=== PATIENT | female | born 1940 | race Hispanic/Latino ===

== ENCOUNTER 2022-05-14 05:59 | Observation (INO) | payer MEDICARE ==
[2022-05-08 10:42] LABS: BASOPHILS % (AUTO) 1.1 % (0.0-5.0); EOSINOPHILS % (AUTO) 2.5 % (0.0-8.0); HEMATOCRIT 39.1 % (36-48); LYMPHOCYTES % (AUTO) 16.7 % (21.0-51.0); MEAN CORPUSCULAR HEMOGLOBIN 31.2 pg (27.0-33.0); MEAN CORPUSCULAR VOLUME 97.5 fL (79-99); MONOCYTES % (AUTO) 3.8 % (3.0-13.0); NEUTROPHILS % (AUTO) 75.6 % (40.0-77.0); NUCLEATED RED BLOOD CELLS 0.2 % (0.0-0.19); PLATELET COUNT (AUTO) 284 K/uL (130-400); RED BLOOD CELL COUNT(AUTO) 4.01 MIL/uL (4.00-5.50); RED CELL DISTRIBUTION WIDTH 13.5 % (11.0-15.5); WHITE BLOOD COUNT (AUTO) 9.4 K/uL (4.8-10.8)
[2022-05-08 10:51] LABS: POTASSIUM 4.6 mmol/L (3.5-5.1)
[2022-05-13 11:04] VITALS: BP 198/69
[~2022-05-14] VITALS: Ht 165.1 cm; Wt 55.5 kg
[2022-05-14] VITALS (24 sets, daily range): BP systolic 129–180; BP diastolic 38–89
[~2022-05-14 05:59] MED LIST: AEC81 PO; APIX2.5T PO; ASCO100031 PO; ATOR40TA69 PO; CHOL500045 PO; CYAN50009 PO; ESCI20TA38 PO; FERR-82 PO; FOLI0.8C PO; LOSA50TA64 PO; METO-408 PO; PANT40TA54 PO; ZINC50TA64 PO
[2022-05-14] MEDS: CEFAZOLIN SODIUM 1 GM VIAL IVP SCH ×4 (06:00→19:58)
[2022-05-14] MEDS: TRANEXAMIC ACID 1000MG/10ML IV SCH ×2 (06:00→11:23)
[2022-05-14 06:45] LABS: INR 0.95 (0.85-1.15); PROTHROMBIN TIME 10.4 SEC (9.6-11.6)
[2022-05-14] MEDS: LACTATED RINGERS 1000ML 1,000 ML IV SCH ×6 (07:37→15:28)
[2022-05-14] MEDS ORDERED: LIDOCAINE HCL-MPF 1% 2ML VIAL IV PRN (08:30)
[2022-05-14] MEDS ORDERED: KCL 20 MEQ ERTAB PO PRN (08:30)
[2022-05-14] MEDS: ACETAMINOPHEN 500 MG TABLET PO SCH ×3 (08:30→23:47)
[2022-05-14] MEDS ORDERED: POTASSIUM CHLORIDE 20MEQ/100ML 100 ML IV PRN (08:30)
[2022-05-14] MEDS ORDERED: HYDROCODONE/ACETAMINOPHEN 5/325 MG TAB PO PRN (08:30)
[2022-05-14] MEDS ORDERED: POTASSIUM CHLORIDE 10% ELIXIR 20 MEQ/15 ML UDCUP PO PRN (08:30)
[2022-05-14] MEDS ORDERED: ONDANSETRON 4MG INJ IVP PRN (08:30)
[2022-05-14] MEDS: 0.9%NACL 1000ML 1,000 ML IV SCH ×2 (08:30→18:30)
[2022-05-14] MEDS ORDERED: FENTANYL CITRATE PF 50 MCG/1 ML 2ML VIAL ONE (08:45)
[2022-05-14] MEDS ORDERED: PROPOFOL 10 MG/ML 20ML VIAL IV ONE (08:45)
[2022-05-14] MEDS ORDERED: MIDAZOLAM HCL 1 MG/ML 2ML VIAL ONE (08:45)
[2022-05-14] MEDS ORDERED: ROCURONIUM 10MG/1ML SYR 10 MG/ML ML ONE (08:46)
[2022-05-14] MEDS ORDERED: LIDOCAINE PF 100MG/5ML (2%) SYRINGE 5ML ONE (08:46)
[2022-05-14] MEDS ORDERED: ROPIVACAINE 0.5% 5MG/ML 30ML IJ ONE ×3 (08:47→09:11)
[2022-05-14] MEDS ORDERED: DEXAMETHASONE SOD PHOSPHATE 10MG/ML 1ML VIAL ONE (08:47)
[2022-05-14] MEDS ORDERED: DEXAMETHASONE SOD PHOSPHATE 4 MG/ML 1ML VIAL ONE (08:55)
[2022-05-14] MEDS: FERROUS SULFATE 325 MG TABLET.DR PO SCH (09:00)
[2022-05-14] MEDS: FOLIC ACID 1 MG TABLET PO SCH (09:00)
[2022-05-14] MEDS: CITALOPRAM 20 MG TABLET PO SCH (09:00)
[2022-05-14] MEDS: PANTOPRAZOLE 40 MG TAB DR PO SCH (09:00)
[2022-05-14] MEDS: METOPROLOL SUCCINATE 25 MG TAB.SR.24H PO SCH (09:00)
[2022-05-14] MEDS: LOSARTAN 50 MG TABLET PO SCH (09:00)
[2022-05-14] MEDS: POLYETHYLENE GLYCOL 3350 17 GM POWD.PACK PO SCH (09:00)
[2022-05-14] MEDS ORDERED: EPHEDRINE SULFATE 50 MG/ML AMPULE ONE (09:28)
[2022-05-14] MEDS: TRAMADOL HCL 50 MG TABLET PO SCH ×3 (13:37→23:46)
[2022-05-14] MEDS: HYDROCODONE/ACETAMINOPHEN 10/325 MG TAB PO PRN (20:03)
[2022-05-15] VITALS (7 sets, daily range): BP systolic 103–147; BP diastolic 39–93
[2022-05-15 04:05] LABS: HEMATOCRIT 24.7 % (36-48); MEAN CORPUSCULAR HGB CONC 33.2 g/dL (32.0-36.0); MEAN CORPUSCULAR VOLUME 96.5 fL (79-99); RED BLOOD CELL COUNT(AUTO) 2.56 MIL/uL (4.00-5.50); RED CELL DISTRIBUTION WIDTH 13.5 % (11.0-15.5)
[2022-05-15] MEDS: 0.9%NACL 1000ML 1,000 ML IV SCH (04:05)
[2022-05-15 04:14] LABS: CREATININE 0.8 mg/dL (0.5-1.5)
[2022-05-15] MEDS: TRAMADOL HCL 50 MG TABLET PO SCH ×4 (05:40→23:46)
[2022-05-15] MEDS: FOLIC ACID 1 MG TABLET PO SCH (08:13)
[2022-05-15] MEDS: PANTOPRAZOLE 40 MG TAB DR PO SCH (08:13)
[2022-05-15] MEDS: FERROUS SULFATE 325 MG TABLET.DR PO SCH (08:13)
[2022-05-15] MEDS: LOSARTAN 50 MG TABLET PO SCH (08:13)
[2022-05-15] MEDS: CITALOPRAM 20 MG TABLET PO SCH (08:13)
[2022-05-15] MEDS: METOPROLOL SUCCINATE 25 MG TAB.SR.24H PO SCH (08:13)
[2022-05-15] MEDS: POLYETHYLENE GLYCOL 3350 17 GM POWD.PACK PO SCH (08:13)
[2022-05-15] MEDS: ENOXAPARIN SODIUM 30 MG/0.3 ML SQ SCH (08:14)
[2022-05-15] MEDS: HYDROCODONE/ACETAMINOPHEN 10/325 MG TAB PO PRN (08:15)
[2022-05-15] MEDS: ACETAMINOPHEN 500 MG TABLET PO SCH ×3 (08:15→23:46)
[2022-05-15] MEDS: KETOROLAC 15MG/ML VIAL (15MG/ML) IV PRN (09:15)
[2022-05-15] MEDS: MORPHINE 4 MG SYG IVP PRN ×2 (14:27→22:10)
[2022-05-16 03:34] VITALS: BP 135/56
[2022-05-16] MEDS: TRAMADOL HCL 50 MG TABLET PO SCH ×2 (05:13→11:23)
[2022-05-16] MEDS: KETOROLAC 15MG/ML VIAL (15MG/ML) IV PRN (05:13)
[2022-05-16 08:13] VITALS: BP 110/47
[2022-05-16] MEDS: FOLIC ACID 1 MG TABLET PO SCH (08:34)
[2022-05-16] MEDS: FERROUS SULFATE 325 MG TABLET.DR PO SCH (08:34)
[2022-05-16] MEDS: PANTOPRAZOLE 40 MG TAB DR PO SCH (08:34)
[2022-05-16] MEDS: ACETAMINOPHEN 500 MG TABLET PO SCH (08:35)
[2022-05-16] MEDS: METOPROLOL SUCCINATE 25 MG TAB.SR.24H PO SCH (08:35)
[2022-05-16] MEDS: LOSARTAN 50 MG TABLET PO SCH (08:35)
[2022-05-16] MEDS: CITALOPRAM 20 MG TABLET PO SCH (08:36)
[2022-05-16] MEDS: POLYETHYLENE GLYCOL 3350 17 GM POWD.PACK PO SCH (08:37)
[2022-05-16] MEDS: ENOXAPARIN SODIUM 30 MG/0.3 ML SQ SCH (08:38)
[2022-05-16 11:32] VITALS: BP 80/35
[2022-05-16 12:30] VITALS: BP 98/37
[2022-05-16] MEDS ORDERED: 0.9%NACL 100ML IV ONE (12:30)
[2022-05-16 14:32] VITALS: BP 122/55
[2022-05-16] MEDS ORDERED: FERROUS SULFATE 325 MG TABLET.DR PO SCH (21:00)
[2022-05-17] MEDS ORDERED: BISACODYL 10 MG SUPP.RECT RC PRN (08:30)
== END 2022-05-16 16:00 | disposition home or self-care (01) ==
LOC: DAH 05:59 → DAHIP 06:00 → 4BH 12:40
PROVIDERS: ADMIT Orthopaedic Surgery; ATTEND Orthopaedic Surgery
DX: M16.11 Unilateral primary osteoarthritis, right hip (principal); Z20.822 Contact with and (suspected) exposure to COVID-19; Z79.82 Long term (current) use of aspirin; Z90.49 Acquired absence of other specified parts of digestive tract; Z79.899 Other long term (current) drug therapy; Z98.890 Other specified postprocedural states
CPT/HCPCS: 80048 ×2; 85025; 85730; 87426; 36415 ×3; 93005; 87641; 27130; 96374; 96376 ×3; 76942; 64450; 85610; 73503; 97039 ×5; 96372 ×2; 96375; 85027; 73502; 97161; 97116 ×3; 97530 ×2; A6260; J1100 ×2; G0378 ×50; A4663; J7120 ×2; A4606; A4649 ×3; A4600; J3010; J0690 ×3; J3490 ×2; J2001; J2704; J2795 ×3; A6219; G0168; A4930; C1776; A4215; A4223; A4222; A4221; J1650 ×2; J2270 ×2; J1885 ×2; J2250

== ENCOUNTER 2022-07-09 10:51 | Emergency (ER) | payer MEDICARE ==
[~2022-07-09] VITALS: Ht 165.1 cm; Wt 53.1 kg
[2022-07-09] MEDS ORDERED: 0.9% NACL 500ML IV.SOLN 500 ML IV ONE (11:30)
[2022-07-09] MEDS ORDERED: MECLIZINE HCL 25 MG TABLET PO ONE (11:30)
[2022-07-09 11:42] LABS: EOSINOPHILS % (AUTO) 3.2 % (0.0-8.0); HEMATOCRIT 33.1 % (36-48); LYMPHOCYTES % (AUTO) 9.6 % (21.0-51.0); MEAN CORPUSCULAR HEMOGLOBIN 31.5 pg (27.0-33.0); MEAN CORPUSCULAR HGB CONC 32.6 g/dL (32.0-36.0); MEAN CORPUSCULAR VOLUME 96.5 fL (79-99); MONOCYTES % (AUTO) 6.7 % (3.0-13.0); NEUTROPHILS % (AUTO) 79.1 % (40.0-77.0); PLATELET COUNT (AUTO) 257 K/uL (130-400); RED BLOOD CELL COUNT(AUTO) 3.43 MIL/uL (4.00-5.50); RED CELL DISTRIBUTION WIDTH 12.8 % (11.0-15.5); WHITE BLOOD COUNT (AUTO) 7.2 K/uL (4.8-10.8)
[2022-07-09 12:14] LABS: POTASSIUM 4.8 mmol/L (3.5-5.1)
[2022-07-09 12:19] LABS: ALBUMIN 3.9 g/dL (3.5-5.0); TOTAL PROTEIN, SERUM 6.6 g/dL (6.0-8.3)
[2022-07-09] MEDS ORDERED: 0.9% NACL 250ML 250 ML IV ONE (13:30)
[2022-07-09 14:40] LABS: APPEARANCE,URINE CLEAR (CLEAR); BILIRUBIN,URINE NEGATIVE (NEGATIVE); COLOR,URINE LIGHT-YELLOW (YELLOW); GLUCOSE, URINE (UA) NEGATIVE (NEGATIVE); KETONES,URINE NEGATIVE (NEGATIVE); LEUKOCYTE ESTERASE ,URINE 25 Leu/uL (NEGATIVE); NITRATE,URINE NEGATIVE (NEGATIVE); OCCULT BLOOD,URINE NEGATIVE (NEGATIVE); PH,URINE 5.5 (5.0-8.0); PROTEIN,URINE NEGATIVE (NEGATIVE); UROBILINOGEN,URINE 0.2 mg/dL (0.2-1.0)
[2022-07-09 14:50] LABS: MUCUS,URINE RARE LPF (None Seen); SQUAMOUS EPITHELIAL CELL,UR FEW /HPF (0-2)
[2022-07-09] MEDS ORDERED: MECL-226 PO (15:07)
[2022-07-09] MEDS ORDERED: CEPH500B PO (15:07)
[2022-07-09 15:13] VITALS: BP 152/68
== END 2022-07-09 15:16 | disposition home or self-care (01) ==
LOC: EDH 10:51
DX: N39.0 Urinary tract infection, site not specified (principal); R42 Dizziness and giddiness; E78.00 Pure hypercholesterolemia, unspecified; I10 Essential (primary) hypertension; Z79.01 Long term (current) use of anticoagulants; Z79.82 Long term (current) use of aspirin
CPT/HCPCS: 99285; 70450; 84484; 80053; 85025; 81001; 36415; 93005; J7040

== ENCOUNTER 2022-12-14 14:01 | Observation (INO) | payer MEDICARE, OTHER ==
[~2022-12-14] VITALS: Ht 165.1 cm; Wt 54.2 kg
[~2022-12-14 14:01] MED LIST changes: +CEPH500B PO; +MECL-226 PO
[2022-12-14 15:21] LABS: BASOPHILS % (AUTO) 0.5 % (0.0-5.0); EOSINOPHILS % (AUTO) 0.2 % (0.0-8.0); HEMATOCRIT 49.8 % (36-48); MEAN CORPUSCULAR HEMOGLOBIN 31.5 pg (27.0-33.0); MEAN CORPUSCULAR HGB CONC 33.5 g/dL (32.0-36.0); MEAN CORPUSCULAR VOLUME 93.8 fL (79-99); MONOCYTES % (AUTO) 8.3 % (3.0-13.0); NEUTROPHILS % (AUTO) 82.4 % (40.0-77.0); PLATELET COUNT (AUTO) 161 K/uL (130-400); RED BLOOD CELL COUNT(AUTO) 5.31 MIL/uL (4.00-5.50); RED CELL DISTRIBUTION WIDTH 12.2 % (11.0-15.5); WHITE BLOOD COUNT (AUTO) 13.7 K/uL (4.8-10.8)
[2022-12-14 15:33] LABS: INR 0.94 (0.85-1.15); PROTHROMBIN TIME 10.3 SEC (9.6-11.6)
[2022-12-14 15:34] LABS: PARTIAL THROMBOPLASTIN TIME 20.2 SEC (26.3-35.5)
[2022-12-14 15:45] LABS: ALBUMIN 4.3 g/dL (3.5-5.0); CREATININE 1.2 mg/dL (0.5-1.5); MAGNESIUM 1.8 mg/dL (1.80-2.40); POTASSIUM 4.8 mmol/L (3.5-5.1); TOTAL PROTEIN, SERUM 7.5 g/dL (6.0-8.3)
[2022-12-14 16:32] LABS: APPEARANCE,URINE CLEAR (CLEAR); BILIRUBIN,URINE NEGATIVE (NEGATIVE); COLOR,URINE YELLOW (YELLOW); GLUCOSE, URINE (UA) NEGATIVE (NEGATIVE); KETONES,URINE 20 mg/dL (NEGATIVE); LEUKOCYTE ESTERASE ,URINE NEGATIVE Leu/uL (NEGATIVE); NITRATE,URINE NEGATIVE (NEGATIVE); OCCULT BLOOD,URINE SMALL (NEGATIVE); PH,URINE 5.5 (5.0-8.0); PROTEIN,URINE 10 mg/dL (NEGATIVE); UROBILINOGEN,URINE 0.2 mg/dL (0.2-1.0)
[2022-12-14] MEDS ORDERED: MAGNESIUM 2GM PREMIX 50ML 50 ML IV ONE (16:54)
[2022-12-14] MEDS ORDERED: MAGNESIUM 2GM PREMIX 50ML 50 ML IV SCH (17:00)
[2022-12-14 17:17] LABS: BACTERIA,URINE RARE /HPF (None Seen); MUCUS,URINE RARE LPF (None Seen); SQUAMOUS EPITHELIAL CELL,UR RARE /HPF (0-2)
[2022-12-14] MEDS ORDERED: 0.9%NACL 1000ML 1,000 ML IV ONE ×2 (17:59→18:00)
[2022-12-14] MEDS ORDERED: ONDANSETRON 4MG INJ IVP PRN (21:00)
[2022-12-14] MEDS ORDERED: HYDRALAZINE 20MG/ML VIAL IV PRN (21:00)
[2022-12-14] MEDS ORDERED: ALBUTEROL 0.083% 2.5 MG/3 ML INH IH PRN (21:00)
[2022-12-14] MEDS ORDERED: ACETAMINOPHEN 325 MG TAB PO PRN (21:00)
[2022-12-14] MEDS ORDERED: ACETAMINOPHEN 325 MG TAB ONE (21:20)
[2022-12-14] MEDS ORDERED: LACTATED RINGERS 1000ML 1,000 ML IV ONE (21:21)
[2022-12-14] MEDS: LACTATED RINGERS 1000ML 1,000 ML IV SCH (21:24)
[2022-12-14 23:10] VITALS: BP 135/67
[2022-12-15 04:00] VITALS: BP 146/76
[2022-12-15] MEDS: LACTATED RINGERS 1000ML 1,000 ML IV SCH ×2 (05:00→12:54)
[2022-12-15 08:00] VITALS: BP 128/64
[2022-12-15] MEDS ORDERED: PANTOPRAZOLE 40 MG/VIAL IVP SCH (09:00)
[2022-12-15] MEDS ORDERED: ASCORBIC ACID 500 MG TAB PO SCH (09:00)
[2022-12-15] MEDS ORDERED: FOLIC ACID 1 MG TABLET PO SCH (09:00)
[2022-12-15 12:14] LABS: HEMATOCRIT 40.5 % (36-48); MEAN CORPUSCULAR HEMOGLOBIN 31.5 pg (27.0-33.0); MEAN CORPUSCULAR HGB CONC 33.8 g/dL (32.0-36.0); MEAN CORPUSCULAR VOLUME 93.1 fL (79-99); RED BLOOD CELL COUNT(AUTO) 4.35 MIL/uL (4.00-5.50); RED CELL DISTRIBUTION WIDTH 12.4 % (11.0-15.5); WHITE BLOOD COUNT (AUTO) 11.9 K/uL (4.8-10.8)
[2022-12-15 12:21] LABS: CREATININE 1.2 mg/dL (0.5-1.5); POTASSIUM 4.1 mmol/L (3.5-5.1)
[2022-12-15] MEDS ORDERED: AZITHROMYCIN 500MG+NS 250ML IVPB SCH (12:30)
[2022-12-15] MEDS ORDERED: AZIT500T4 PO (16:16)
[2022-12-15] MEDS ORDERED: LOPE2 PO (16:16)
[2022-12-15] MEDS ORDERED: AZITHROMYCIN 250 MG TABLET PO SCH (18:00)
== END 2022-12-15 19:30 | disposition home or self-care (01) ==
LOC: EDH 14:01 → EDHIP 20:56 → 3BH 22:19
PROVIDERS: ADMIT Internal Medicine Critical Care Medicine; ATTEND Internal Medicine Critical Care Medicine
DX: D72.829 Elevated white blood cell count, unspecified (principal); Z20.822 Contact with and (suspected) exposure to COVID-19; K92.1 Melena; K52.9 Noninfective gastroenteritis and colitis, unspecified; I10 Essential (primary) hypertension; E78.00 Pure hypercholesterolemia, unspecified; K21.9 Gastro-esophageal reflux disease without esophagitis; F32.A Depression, unspecified; I25.10 Atherosclerotic heart disease of native coronary artery without angina pectoris; D64.9 Anemia, unspecified; E86.0 Dehydration; R94.31 Abnormal electrocardiogram [ECG] [EKG]; Z79.01 Long term (current) use of anticoagulants; Z96.641 Presence of right artificial hip joint; Z79.82 Long term (current) use of aspirin; Z79.899 Other long term (current) drug therapy
CPT/HCPCS: 96361 ×2; 96365; 99285; 83735; 84484 ×2; 80053; 85025; 85610; 85730; 86850; 86900; 86901; 83605; 82270; 81001; 36415 ×2; 87635; 71045 ×2; 74176; 93005 ×2; 94664; 96366; 96375; 96367; 80048; 85027; G0378 ×22; C9803; J3475; J7120; J7030; J0456; C9113

== ENCOUNTER 2023-01-28 17:40 | Emergency (ER) | payer OTHER ==
[~2023-01-28] VITALS: Ht 165.1 cm; Wt 49.4 kg
[~2023-01-28 17:40] MED LIST changes: +AZIT500T4 PO; -CEPH500B PO; +LOPE2 PO
[2023-01-28 18:37] LABS: BASOPHILS % (AUTO) 0.6 % (0.0-5.0); EOSINOPHILS % (AUTO) 1.4 % (0.0-8.0); HEMATOCRIT 32.7 % (36-48); LYMPHOCYTES % (AUTO) 18.2 % (21.0-51.0); MEAN CORPUSCULAR HEMOGLOBIN 31.1 pg (27.0-33.0); MEAN CORPUSCULAR HGB CONC 32.4 g/dL (32.0-36.0); MEAN CORPUSCULAR VOLUME 95.9 fL (79-99); MONOCYTES % (AUTO) 4.8 % (3.0-13.0); NEUTROPHILS % (AUTO) 74.5 % (40.0-77.0); PLATELET COUNT (AUTO) 214 K/uL (130-400); RED BLOOD CELL COUNT(AUTO) 3.41 MIL/uL (4.00-5.50); RED CELL DISTRIBUTION WIDTH 13.9 % (11.0-15.5); WHITE BLOOD COUNT (AUTO) 8.8 K/uL (4.8-10.8)
[2023-01-28 18:47] LABS: INR 0.93 (0.85-1.15); PROTHROMBIN TIME 9.7 SEC (9.6-11.6)
[2023-01-28 18:48] LABS: PARTIAL THROMBOPLASTIN TIME 29.1 SEC (26.3-35.5)
[2023-01-28 18:49] LABS: CREATININE 1.1 mg/dL (0.5-1.5); POTASSIUM 4.2 mmol/L (3.5-5.1)
[2023-01-28 18:56] LABS: ALBUMIN 3.1 g/dL (3.5-5.0); TOTAL PROTEIN, SERUM 6.4 g/dL (6.0-8.3)
[2023-01-28 19:28] LABS: B-TYPE NATRIURETIC PEPTIDE 363 pg/mL (0-100)
[2023-01-28 20:40] VITALS: BP 122/56
== END 2023-01-28 20:43 | disposition home or self-care (01) ==
LOC: EDH 17:40
DX: I73.00 Raynaud's syndrome without gangrene (principal); R20.0 Anesthesia of skin; E78.00 Pure hypercholesterolemia, unspecified; I10 Essential (primary) hypertension; Z79.01 Long term (current) use of anticoagulants; Z79.82 Long term (current) use of aspirin; Z79.899 Other long term (current) drug therapy; Z86.73 Personal history of transient ischemic attack (TIA), and cerebral infarction without residual deficits
CPT/HCPCS: 36415; 70450; 71045; 80053; 83880; 84484; 85025; 85610; 85730; 93005; 93930

== ENCOUNTER → 2023-02-11 | Outpatient (CLI) | payer OTHER | END | disposition home or self-care (01) | LOC: LAB 15:23 | PROVIDERS: ATTEND Internal Medicine Cardiovascular Disease | DX: R60.9 Edema, unspecified (principal) | CPT/HCPCS: 36415; 84443 ==

== ENCOUNTER 2023-02-21 14:19 | Emergency (ER) | payer OTHER ==
[~2023-02-21] VITALS: Ht 165.1 cm; Wt 46.3 kg
[2023-02-21 14:19] VITALS: BP 145/65
[2023-02-21 15:01] LABS: BASOPHILS % (AUTO) 0.5 % (0.0-5.0); EOSINOPHILS % (AUTO) 0.6 % (0.0-8.0); HEMATOCRIT 33.1 % (36-48); LYMPHOCYTES % (AUTO) 18.9 % (21.0-51.0); MEAN CORPUSCULAR HEMOGLOBIN 31.7 pg (27.0-33.0); MEAN CORPUSCULAR HGB CONC 32.6 g/dL (32.0-36.0); MEAN CORPUSCULAR VOLUME 97.1 fL (79-99); MONOCYTES % (AUTO) 6.4 % (3.0-13.0); NEUTROPHILS % (AUTO) 73.2 % (40.0-77.0); PLATELET COUNT (AUTO) 143 K/uL (130-400); RED BLOOD CELL COUNT(AUTO) 3.41 MIL/uL (4.00-5.50); RED CELL DISTRIBUTION WIDTH 14.3 % (11.0-15.5); WHITE BLOOD COUNT (AUTO) 7.9 K/uL (4.8-10.8)
[2023-02-21 15:17] LABS: CREATININE 0.8 mg/dL (0.5-1.5); POTASSIUM 4.1 mmol/L (3.5-5.1)
[2023-02-21 15:21] LABS: ALBUMIN 3.2 g/dL (3.5-5.0); MAGNESIUM 1.5 mg/dL (1.80-2.40); TOTAL PROTEIN, SERUM 5.8 g/dL (6.0-8.3)
[2023-02-21 15:41] LABS: B-TYPE NATRIURETIC PEPTIDE 174 pg/mL (0-100)
[2023-02-21] MEDS ORDERED: POTA-187 PO (17:08)
[2023-02-21] MEDS ORDERED: FURO20TA4 PO (17:08)
== END 2023-02-21 18:24 | disposition home or self-care (01) ==
LOC: EDH 14:19
DX: I48.91 Unspecified atrial fibrillation (principal); R60.0 Localized edema; M79.89 Other specified soft tissue disorders; I10 Essential (primary) hypertension; E78.00 Pure hypercholesterolemia, unspecified; Z79.01 Long term (current) use of anticoagulants; Z79.82 Long term (current) use of aspirin; Z79.899 Other long term (current) drug therapy; Z98.890 Other specified postprocedural states
CPT/HCPCS: 36415; 80053; 83735; 83880; 85025; 93005; 93970

== ENCOUNTER 2023-03-16 17:59 | Observation (INO) | payer OTHER ==
[~2023-03-16] VITALS: Ht 162.6 cm; Wt 48.9 kg
[~2023-03-16 17:59] MED LIST changes: +FURO20TA4 PO; +POTA-187 PO
[2023-03-16 18:59] LABS: BASOPHILS % (AUTO) 0.4 % (0.0-5.0); EOSINOPHILS % (AUTO) 0.2 % (0.0-8.0); HEMATOCRIT 33.6 % (36-48); LYMPHOCYTES % (AUTO) 9.5 % (21.0-51.0); MEAN CORPUSCULAR HEMOGLOBIN 31.9 pg (27.0-33.0); MEAN CORPUSCULAR HGB CONC 33.9 g/dL (32.0-36.0); MEAN CORPUSCULAR VOLUME 94.1 fL (79-99); MONOCYTES % (AUTO) 5.7 % (3.0-13.0); NEUTROPHILS % (AUTO) 83.6 % (40.0-77.0); PLATELET COUNT (AUTO) 77 K/uL (130-400); RED BLOOD CELL COUNT(AUTO) 3.57 MIL/uL (4.00-5.50); RED CELL DISTRIBUTION WIDTH 13.4 % (11.0-15.5); WHITE BLOOD COUNT (AUTO) 14.2 K/uL (4.8-10.8)
[2023-03-16 19:07] LABS: POTASSIUM 3.5 mmol/L (3.5-5.1)
[2023-03-16 19:12] LABS: ALBUMIN 3.2 g/dL (3.5-5.0); MAGNESIUM 1.1 mg/dL (1.80-2.40); TOTAL PROTEIN, SERUM 6.2 g/dL (6.0-8.3)
[2023-03-16 19:18] LABS: APPEARANCE,URINE CLEAR (CLEAR); BILIRUBIN,URINE NEGATIVE (NEGATIVE); COLOR,URINE YELLOW (YELLOW); GLUCOSE, URINE (UA) NEGATIVE (NEGATIVE); KETONES,URINE NEGATIVE (NEGATIVE); LEUKOCYTE ESTERASE ,URINE 75 Leu/uL (NEGATIVE); NITRATE,URINE NEGATIVE (NEGATIVE); OCCULT BLOOD,URINE NEGATIVE (NEGATIVE); PH,URINE 5.5 (5.0-8.0); PROTEIN,URINE 30 mg/dL (NEGATIVE); UROBILINOGEN,URINE 0.2 mg/dL (0.2-1.0)
[2023-03-16 19:27] LABS: BACTERIA,URINE FEW /HPF (None Seen); HYALINE CASTS, URINE 51-100 /LPF (0-1 /LPF); MUCUS,URINE RARE LPF (None Seen); SQUAMOUS EPITHELIAL CELL,UR RARE /HPF (0-2); TRANSITIONAL EPI CELLS,URINE RARE /HPF (None Seen)
[2023-03-16] MEDS ORDERED: MORPHINE 2 MG SYG IM ONE (19:30)
[2023-03-16] MEDS ORDERED: METOCLOPRAMIDE 10 MG/2 ML VIAL IVP ONE (19:30)
[2023-03-16] MEDS ORDERED: FAMOTIDINE 20MG VIAL IV ONE (19:30)
[2023-03-16] MEDS ORDERED: EPIN0.3P19 IJ (20:23)
[2023-03-16] MEDS ORDERED: ZYRTD PO (20:23)
[2023-03-16] MEDS ORDERED: NITROGLYCERIN 1GM OINT 1 INCH/1GM TD ONE (21:00)
[2023-03-16] MEDS ORDERED: ASPIRIN 325MG TAB PO ONE (21:00)
[2023-03-16] MEDS ORDERED: CEFTRIAXONE 2GM VIAL IVPB ONE (21:00)
[2023-03-16] MEDS ORDERED: 0.9%NACL 1000ML 1,710 ML IV ONE (21:00)
[2023-03-16] MEDS ORDERED: GABA600T10 PO (21:15)
[2023-03-16] MEDS ORDERED: APIXABAN 5 MG TABLET PO ONE (21:30)
[2023-03-16] MEDS ORDERED: IOHEXOL-350 75 ML VIAL IV ONE (21:45)
[2023-03-16] MEDS ORDERED: HYDRALAZINE 20MG/ML VIAL IV PRN (23:30)
[2023-03-16] MEDS ORDERED: ONDANSETRON 4MG INJ IVP PRN (23:30)
[2023-03-16] MEDS ORDERED: MORPHINE 2 MG SYG IVP PRN (23:30)
[2023-03-16] MEDS ORDERED: ACETAMINOPHEN 325 MG TAB PO PRN (23:30)
[2023-03-16] MEDS ORDERED: LACTULOSE 20 GM/30 ML UDCUP PO PRN (23:30)
[2023-03-16] MEDS ORDERED: ALBUTEROL 0.083% 2.5 MG/3 ML INH IH PRN (23:30)
[2023-03-17] MEDS ORDERED: GLUCAGON 1MG KIT 1 MG ML IM PRN
[2023-03-17] MEDS ORDERED: DEXTROSE 50%-WATER 50 ML DISP.SYRIN IV PRN
[2023-03-17] MEDS: METRONIDAZOLE 500MG/100ML BAG 100 ML IVPB SCH ×4 (00:31→21:50)
[2023-03-17] MEDS: LACTATED RINGERS 1000ML 1,000 ML IV SCH ×2 (00:31→05:58)
[2023-03-17 03:20] VITALS: BP 140/61
[2023-03-17 04:20] LABS: BASOPHILS % (AUTO) 0.3 % (0.0-5.0); EOSINOPHILS % (AUTO) 2.4 % (0.0-8.0); HEMATOCRIT 35.2 % (36-48); LYMPHOCYTES % (AUTO) 5.7 % (21.0-51.0); MEAN CORPUSCULAR HEMOGLOBIN 31.6 pg (27.0-33.0); MEAN CORPUSCULAR VOLUME 95.9 fL (79-99); MONOCYTES % (AUTO) 8.5 % (3.0-13.0); NEUTROPHILS % (AUTO) 82.7 % (40.0-77.0); PLATELET COUNT (AUTO) 94 K/uL (130-400); RED BLOOD CELL COUNT(AUTO) 3.67 MIL/uL (4.00-5.50); RED CELL DISTRIBUTION WIDTH 13.6 % (11.0-15.5); WHITE BLOOD COUNT (AUTO) 13.9 K/uL (4.8-10.8)
[2023-03-17 04:27] LABS: INR 0.95 (0.85-1.15); PROTHROMBIN TIME 10.4 SEC (9.6-11.6)
[2023-03-17 04:47] LABS: HEMOGLOBIN A1C 5.4 % (4.0-6.0)
[2023-03-17 04:53] LABS: CREATININE 0.9 mg/dL (0.5-1.5); MAGNESIUM 0.9 mg/dL (1.80-2.40); PHOSPHORUS 3.8 mg/dL (2.5-4.9); POTASSIUM 3.5 mmol/L (3.5-5.1)
[2023-03-17 05:13] LABS: B-TYPE NATRIURETIC PEPTIDE 898 pg/mL (0-100)
[2023-03-17] MEDS: INSULIN HUMULIN R 100 UNIT/ML 3ML SQ SCH ×4 (05:58→17:22)
[2023-03-17] MEDS ORDERED: MAGNESIUM 2GM PREMIX 50ML 50 ML IV PRN ×2 (06:00)
[2023-03-17] MEDS ORDERED: HEPARIN 5,000 UNIT VIAL IV ONE (07:00)
[2023-03-17] MEDS: HEPARIN 25,000 UNITS/250ML D5W 250 ML IV SCH (07:00)
[2023-03-17 08:00] VITALS: BP 118/50
[2023-03-17] MEDS: PANTOPRAZOLE 40 MG/VIAL IVP SCH (09:04)
[2023-03-17] MEDS: CEFTRIAXONE 1G VIAL IV SCH (09:05)
[2023-03-17] MEDS: ASPIRIN 81MG CHEW TAB PO SCH ×2 (09:05→09:14)
[2023-03-17 12:00] VITALS: BP 116/41
[2023-03-17 16:00] VITALS: BP 93/42
[2023-03-17 16:41] LABS: INR 1.06 (0.85-1.15); PROTHROMBIN TIME 11.5 SEC (9.6-11.6)
[2023-03-17 16:42] LABS: PARTIAL THROMBOPLASTIN TIME 36.3 SEC (26.3-35.5)
[2023-03-17] MEDS ORDERED: HEPARIN 5,000 UNIT VIAL ONE (17:38)
[2023-03-17 20:00] VITALS: BP 98/48
[2023-03-17] MEDS: ATORVASTATIN 40 MG TABLET PO SCH (21:00)
[2023-03-17 22:49] LABS: INR 1.14 (0.85-1.15); PROTHROMBIN TIME 12.3 SEC (9.6-11.6)
[2023-03-17 23:07] LABS: PARTIAL THROMBOPLASTIN TIME > 139.0 SEC (26.3-35.5)
[2023-03-18] VITALS: BP 108/45
[2023-03-18] MEDS: LACTATED RINGERS 1000ML 1,000 ML IV SCH ×2 (02:07→22:07)
[2023-03-18 04:00] VITALS: BP 104/45
[2023-03-18 05:36] LABS: HEMATOCRIT 23.8 % (36-48); MEAN CORPUSCULAR HEMOGLOBIN 31.7 pg (27.0-33.0); MEAN CORPUSCULAR HGB CONC 33.6 g/dL (32.0-36.0); MEAN CORPUSCULAR VOLUME 94.4 fL (79-99); RED BLOOD CELL COUNT(AUTO) 2.52 MIL/uL (4.00-5.50); RED CELL DISTRIBUTION WIDTH 14.2 % (11.0-15.5); WHITE BLOOD COUNT (AUTO) 6.8 K/uL (4.8-10.8)
[2023-03-18 05:44] LABS: CREATININE 0.7 mg/dL (0.5-1.5); MAGNESIUM 1.8 mg/dL (1.80-2.40)
[2023-03-18] MEDS: METRONIDAZOLE 500MG/100ML BAG 100 ML IVPB SCH ×3 (05:46→22:14)
[2023-03-18] MEDS: INSULIN HUMULIN R 100 UNIT/ML 3ML SQ SCH ×4 (06:00→18:00)
[2023-03-18] MEDS: POTASSIUM CHLORIDE 10MEQ/100ML 100 ML IV PRN (06:57)
[2023-03-18 07:40] VITALS: BP 107/59
[2023-03-18] MEDS: CEFTRIAXONE 1G VIAL IV SCH (09:15)
[2023-03-18] MEDS: PANTOPRAZOLE 40 MG/VIAL IVP SCH (09:15)
[2023-03-18] MEDS: FOLIC ACID 1 MG TABLET PO SCH (09:16)
[2023-03-18] MEDS: MULTIVITAMIN TABLET PO SCH (09:16)
[2023-03-18] MEDS: ASPIRIN 81MG CHEW TAB PO SCH (09:19)
[2023-03-18 11:29] VITALS: BP 111/44
[2023-03-18 16:45] VITALS: BP 108/42
[2023-03-18 16:53] LABS: INR 1.1 (0.85-1.15); PROTHROMBIN TIME 11.9 SEC (9.6-11.6)
[2023-03-18 16:54] LABS: PARTIAL THROMBOPLASTIN TIME 66.5 SEC (26.3-35.5)
[2023-03-18] MEDS ORDERED: MAGNESIUM 2GM PREMIX 50ML 50 ML IV PRN (17:00)
[2023-03-18 20:00] VITALS: BP 108/50
[2023-03-18] MEDS: ATORVASTATIN 40 MG TABLET PO SCH (20:24)
[2023-03-18] MEDS: HEPARIN 25,000 UNITS/250ML D5W 250 ML IV SCH (20:40)
[2023-03-18 22:32] LABS: INR 1.09 (0.85-1.15); PROTHROMBIN TIME 11.8 SEC (9.6-11.6)
[2023-03-18 22:34] LABS: PARTIAL THROMBOPLASTIN TIME 63.3 SEC (26.3-35.5)
[2023-03-19] VITALS: BP 109/47
[2023-03-19 04:00] VITALS: BP 108/41
[2023-03-19 04:01] LABS: BASOPHILS % (AUTO) 0.5 % (0.0-5.0); EOSINOPHILS % (AUTO) 1.6 % (0.0-8.0); HEMATOCRIT 26.5 % (36-48); LYMPHOCYTES % (AUTO) 18.4 % (21.0-51.0); MEAN CORPUSCULAR HEMOGLOBIN 31.2 pg (27.0-33.0); MEAN CORPUSCULAR HGB CONC 33.2 g/dL (32.0-36.0); MONOCYTES % (AUTO) 6.9 % (3.0-13.0); NEUTROPHILS % (AUTO) 72.3 % (40.0-77.0); PLATELET COUNT (AUTO) 136 K/uL (130-400); RED BLOOD CELL COUNT(AUTO) 2.82 MIL/uL (4.00-5.50); RED CELL DISTRIBUTION WIDTH 13.6 % (11.0-15.5); WHITE BLOOD COUNT (AUTO) 6.1 K/uL (4.8-10.8)
[2023-03-19 04:20] LABS: ALBUMIN 1.8 g/dL (3.5-5.0); CREATININE 0.6 mg/dL (0.5-1.5); TOTAL PROTEIN, SERUM 4.1 g/dL (6.0-8.3)
[2023-03-19] MEDS: METRONIDAZOLE 500MG/100ML BAG 100 ML IVPB SCH ×2 (05:05→14:05)
[2023-03-19] MEDS: INSULIN HUMULIN R 100 UNIT/ML 3ML SQ SCH ×3 (05:49→16:30)
[2023-03-19] MEDS: POTASSIUM CHLORIDE 10MEQ/100ML 100 ML IV PRN (05:59)
[2023-03-19 07:59] VITALS: BP 121/57
[2023-03-19] MEDS ORDERED: KCL 20 MEQ ERTAB PO ONE ×2 (08:30→11:30)
[2023-03-19] MEDS: PANTOPRAZOLE 40 MG/VIAL IVP SCH (08:38)
[2023-03-19] MEDS: ASPIRIN 81MG CHEW TAB PO SCH (08:39)
[2023-03-19] MEDS: MULTIVITAMIN TABLET PO SCH (08:39)
[2023-03-19] MEDS: FOLIC ACID 1 MG TABLET PO SCH (08:39)
[2023-03-19] MEDS: CEFTRIAXONE 1G VIAL IV SCH (08:40)
[2023-03-19 11:35] VITALS: BP 107/41
[2023-03-19 16:45] VITALS: BP 124/46
[2023-03-19] MEDS ORDERED: APIX5TAB PO (16:50)
[2023-03-19] MEDS ORDERED: ATOR40TA69 PO (16:50)
[2023-03-19] MEDS ORDERED: APIX2.5T PO (16:50)
[2023-03-19] MEDS ORDERED: LEVO750T68 PO (16:52)
[2023-03-19] MEDS ORDERED: METR375C2 PO (16:53)
[2023-03-19] MEDS ORDERED: APIXABAN 5 MG TABLET PO ONE (17:30)
== END 2023-03-19 20:10 | disposition home or self-care (01) ==
LOC: EDH 17:59 → OBSVTOIN 23:30 → INTOOBSV 23:30 → EDHIP 23:30 → 4AH 03-17 02:59
PROVIDERS: ADMIT Internal Medicine Critical Care Medicine; ATTEND Internal Medicine Critical Care Medicine
DX: A41.9 Sepsis, unspecified organism (principal); I21.4 Non-ST elevation (NSTEMI) myocardial infarction; N39.0 Urinary tract infection, site not specified; K52.9 Noninfective gastroenteritis and colitis, unspecified; D69.6 Thrombocytopenia, unspecified; R63.0 Anorexia; I48.20 Chronic atrial fibrillation, unspecified; I10 Essential (primary) hypertension; I44.7 Left bundle-branch block, unspecified; E78.00 Pure hypercholesterolemia, unspecified; I25.10 Atherosclerotic heart disease of native coronary artery without angina pectoris; Z86.73 Personal history of transient ischemic attack (TIA), and cerebral infarction without residual deficits; Z66 Do not resuscitate; Z74.01 Bed confinement status; Z79.82 Long term (current) use of aspirin; Z79.899 Other long term (current) drug therapy; Z79.01 Long term (current) use of anticoagulants; Z96.649 Presence of unspecified artificial hip joint
CPT/HCPCS: 96372; 96365; 96375 ×2; 99285; 83735 ×4; 84484 ×4; 80053 ×2; 85025 ×3; 87088; 83605 ×2; 81001; 36415 ×4; 71045; 74178; 93005 ×2; 96376 ×3; 96366 ×3; 96367 ×2; 96368; 83036; 84443; 82550 ×3; 84100; 83874 ×3; 80061; 80048 ×2; 83880; 85007; 85610 ×5; 85730 ×8; 87040 ×2; 82948 ×12; 76700; 93306; 93970; 85027; 97161; 97116; J3490 ×10; J2270 ×2; J0696 ×5; J2765; Q9967; J3475 ×3; J1644 ×4; C9113 ×3; G0378 ×3

== ENCOUNTER 2023-03-21 11:51 | Inpatient (IN) | payer OTHER ==
[~2023-03-21] VITALS: Ht 165.1 cm; Wt 43.9 kg
[~2023-03-21 11:51] MED LIST changes: +APIX5TAB PO; -ASCO100031 PO; -AZIT500T4 PO; -CHOL500045 PO; -ESCI20TA38 PO; -FOLI0.8C PO; +GABA600T10 PO; +LEVO750T68 PO; -LOPE2 PO; -LOSA50TA64 PO; -MECL-226 PO; -METO-408 PO; +METR375C2 PO; -ZINC50TA64 PO
[2023-03-21 12:58] LABS: CREATININE 1.1 mg/dL (0.5-1.5); POTASSIUM 4.4 mmol/L (3.5-5.1)
[2023-03-21 13:02] LABS: ALBUMIN 2.7 g/dL (3.5-5.0); MAGNESIUM 1.7 mg/dL (1.80-2.40); TOTAL PROTEIN, SERUM 5.5 g/dL (6.0-8.3)
[2023-03-21 13:24] LABS: BASOPHILS % (AUTO) 0.4 % (0.0-5.0); EOSINOPHILS % (AUTO) 0.5 % (0.0-8.0); HEMATOCRIT 32.6 % (36-48); LYMPHOCYTES % (AUTO) 9.2 % (21.0-51.0); MEAN CORPUSCULAR HEMOGLOBIN 31.5 pg (27.0-33.0); MEAN CORPUSCULAR HGB CONC 31.9 g/dL (32.0-36.0); MEAN CORPUSCULAR VOLUME 98.8 fL (79-99); MONOCYTES % (AUTO) 7.1 % (3.0-13.0); NEUTROPHILS % (AUTO) 81.8 % (40.0-77.0); PLATELET COUNT (AUTO) 449 K/uL (130-400); RED CELL DISTRIBUTION WIDTH 14.2 % (11.0-15.5)
[2023-03-21] MEDS ORDERED: MAG/ALUM/SIMETH 30 ML UDCUP PO ONE (13:30)
[2023-03-21] MEDS ORDERED: FAMOTIDINE 20MG TAB ONE (13:56)
[2023-03-21] MEDS ORDERED: DICYCLOMINE HCL 10 MG/5 ML ML PO ONE (13:58)
[2023-03-21] MEDS ORDERED: MAG/ALUM/SIMETH 30 ML UDCUP ONE (13:58)
[2023-03-21] MEDS ORDERED: LIDOCAINE HCL 2% VISCOUS 15 ML UDCUP ONE (13:58)
[2023-03-21 14:19] LABS: CREATININE 1.2 mg/dL (0.5-1.5); POTASSIUM 4.2 mmol/L (3.5-5.1)
[2023-03-21 14:24] LABS: ALBUMIN 2.8 g/dL (3.5-5.0); TOTAL PROTEIN, SERUM 5.7 g/dL (6.0-8.3)
[2023-03-21] MEDS ORDERED: ZOSYN 3.375GM +NS 50ML IVPB ONE (15:00)
[2023-03-21] MEDS ORDERED: LEVO750T39 PO (15:28)
[2023-03-21] MEDS ORDERED: METR-172 PO (15:28)
[2023-03-21] MEDS ORDERED: HYDRALAZINE 20MG/ML VIAL IV PRN (20:00)
[2023-03-21] MEDS ORDERED: ONDANSETRON 4MG INJ IVP PRN (20:00)
[2023-03-21] MEDS: FAMOTIDINE 20MG TAB PO SCH (20:31)
[2023-03-21 21:23] LABS: AMMONIA < 10 umol/L (11-32)
[2023-03-21] MEDS: METRONIDAZOLE 500MG/100ML BAG 100 ML IVPB SCH (22:41)
[2023-03-22] VITALS (7 sets, daily range): BP systolic 115–145; BP diastolic 53–65
[2023-03-22 02:20] LABS: HEMATOCRIT 28.3 % (36-48); MEAN CORPUSCULAR HEMOGLOBIN 31.4 pg (27.0-33.0); MEAN CORPUSCULAR HGB CONC 32.9 g/dL (32.0-36.0); MEAN CORPUSCULAR VOLUME 95.6 fL (79-99); RED BLOOD CELL COUNT(AUTO) 2.96 MIL/uL (4.00-5.50); RED CELL DISTRIBUTION WIDTH 14.3 % (11.0-15.5); WHITE BLOOD COUNT (AUTO) 14.2 K/uL (4.8-10.8)
[2023-03-22 02:31] LABS: CREATININE 0.8 mg/dL (0.5-1.5); MAGNESIUM 1.6 mg/dL (1.80-2.40); PHOSPHORUS 3.8 mg/dL (2.5-4.9); POTASSIUM 4.3 mmol/L (3.5-5.1)
[2023-03-22] MEDS ORDERED: 0.9%NACL 1000ML 1,000 ML IV SCH (03:30)
[2023-03-22] MEDS ORDERED: KETOROLAC 15MG/ML VIAL (15MG/ML) IV PRN (03:30)
[2023-03-22] MEDS: FUROSEMIDE 40MG VIAL IV SCH ×2 (03:48→15:01)
[2023-03-22 04:02] LABS: HEMOGLOBIN A1C 5.4 % (4.0-6.0)
[2023-03-22] MEDS: INSULIN HUMULIN R 100 UNIT/ML 3ML SQ SCH ×5 (06:00→21:54)
[2023-03-22] MEDS: METRONIDAZOLE 500MG/100ML BAG 100 ML IVPB SCH ×3 (06:07→21:49)
[2023-03-22] MEDS: APIXABAN 5 MG TABLET PO SCH ×2 (09:00→20:16)
[2023-03-22] MEDS: ASPIRIN 81 MG EC TAB PO SCH (09:00)
[2023-03-22] MEDS ORDERED: ENOXAPARIN SODIUM 30 MG/0.3 ML SQ SCH (09:00)
[2023-03-22] MEDS: FAMOTIDINE 20MG TAB PO SCH ×2 (09:00→20:17)
[2023-03-22] MEDS: POTASSIUM CHLORIDE 10MEQ SR TAB PO SCH (09:00)
[2023-03-22] MEDS: LEVOFLOXACIN 500 MG/D5W 100 ML IV SCH (10:18)
[2023-03-22 11:05] LABS: CHOLESTEROL 112 mg/dL (<200); HDL CHOLESTEROL 59 mg/dL (35-85); LDL DIRECT 37 mg/dL (0-99); TRIGLYCERIDES 71 mg/dL (30-200)
[2023-03-22] MEDS: MAGNESIUM 2GM PREMIX 50ML 50 ML IV PRN (15:02)
[2023-03-22] MEDS ORDERED: FLUT16H NASAL (18:35)
[2023-03-22] MEDS ORDERED: VERA120C2 PO (18:35)
[2023-03-22] MEDS ORDERED: OMEG-227 PO (18:35)
[2023-03-22] MEDS ORDERED: ATOR40TA69 PO (18:38)
[2023-03-22] MEDS: ATORVASTATIN 40 MG TABLET PO SCH (20:16)
[2023-03-23] MEDS: FUROSEMIDE 40MG VIAL IV SCH ×2 (02:24→15:34)
[2023-03-23 04:00] VITALS: BP 112/60
[2023-03-23] MEDS: INSULIN HUMULIN R 100 UNIT/ML 3ML SQ SCH ×4 (05:42→19:40)
[2023-03-23] MEDS: METRONIDAZOLE 500MG/100ML BAG 100 ML IVPB SCH ×3 (05:42→22:16)
[2023-03-23 08:00] VITALS: BP 129/50
[2023-03-23] MEDS: APIXABAN 5 MG TABLET PO SCH ×2 (08:33→20:20)
[2023-03-23] MEDS: ASPIRIN 81 MG EC TAB PO SCH (08:33)
[2023-03-23] MEDS: POTASSIUM CHLORIDE 10MEQ SR TAB PO SCH (08:34)
[2023-03-23] MEDS: FAMOTIDINE 20MG TAB PO SCH ×2 (08:34→20:20)
[2023-03-23] MEDS: LEVOFLOXACIN 500 MG/D5W 100 ML IV SCH (08:34)
[2023-03-23] MEDS: MAGNESIUM 2GM PREMIX 50ML 50 ML IV PRN (11:03)
[2023-03-23 11:54] VITALS: BP 119/58
[2023-03-23 16:00] VITALS: BP 133/53
[2023-03-23 20:12] VITALS: BP 102/52
[2023-03-23] MEDS: ATORVASTATIN 40 MG TABLET PO SCH (20:20)
[2023-03-23 23:35] VITALS: BP 112/50
[2023-03-24] MEDS: FUROSEMIDE 40MG VIAL IV SCH ×2 (03:17→15:00)
[2023-03-24 03:49] VITALS: BP 115/52
[2023-03-24 05:13] LABS: BASOPHILS % (AUTO) 0.9 % (0.0-5.0); EOSINOPHILS % (AUTO) 1.6 % (0.0-8.0); HEMATOCRIT 31.1 % (36-48); LYMPHOCYTES % (AUTO) 22.6 % (21.0-51.0); MEAN CORPUSCULAR HEMOGLOBIN 31.4 pg (27.0-33.0); MEAN CORPUSCULAR HGB CONC 33.1 g/dL (32.0-36.0); MEAN CORPUSCULAR VOLUME 94.8 fL (79-99); MONOCYTES % (AUTO) 8.7 % (3.0-13.0); NEUTROPHILS % (AUTO) 65.2 % (40.0-77.0); PLATELET COUNT (AUTO) 367 K/uL (130-400); RED BLOOD CELL COUNT(AUTO) 3.28 MIL/uL (4.00-5.50); RED CELL DISTRIBUTION WIDTH 14.1 % (11.0-15.5); WHITE BLOOD COUNT (AUTO) 5.8 K/uL (4.8-10.8)
[2023-03-24 05:53] LABS: ALBUMIN 2.2 g/dL (3.5-5.0); CREATININE 0.8 mg/dL (0.5-1.5); MAGNESIUM 1.7 mg/dL (1.80-2.40); POTASSIUM 3.3 mmol/L (3.5-5.1); TOTAL PROTEIN, SERUM 4.7 g/dL (6.0-8.3)
[2023-03-24] MEDS: INSULIN HUMULIN R 100 UNIT/ML 3ML SQ SCH ×4 (06:00→20:29)
[2023-03-24] MEDS: METRONIDAZOLE 500MG/100ML BAG 100 ML IVPB SCH ×2 (06:28→14:00)
[2023-03-24 07:55] VITALS: BP 113/57
[2023-03-24] MEDS ORDERED: MAGNESIUM 2GM PREMIX 50ML 50 ML IV SCH (08:30)
[2023-03-24] MEDS ORDERED: KCL 20 MEQ ERTAB PO ONE (08:30)
[2023-03-24] MEDS: LEVOFLOXACIN 500 MG/D5W 100 ML IV SCH (08:40)
[2023-03-24] MEDS: FAMOTIDINE 20MG TAB PO SCH ×2 (08:41→20:18)
[2023-03-24] MEDS: APIXABAN 5 MG TABLET PO SCH ×2 (08:41→20:18)
[2023-03-24] MEDS: ASPIRIN 81 MG EC TAB PO SCH (08:41)
[2023-03-24] MEDS: POTASSIUM CHLORIDE 10MEQ SR TAB PO SCH (08:42)
[2023-03-24 12:00] VITALS: BP 109/53
[2023-03-24] MEDS ORDERED: FAMO20TA8 PO (13:29)
[2023-03-24] MEDS ORDERED: FURO40SO4 PO (13:29)
[2023-03-24 16:00] VITALS: BP 134/63
[2023-03-24 20:03] VITALS: BP 98/50
[2023-03-24] MEDS: ATORVASTATIN 40 MG TABLET PO SCH (20:18)
[2023-03-29] MEDS ORDERED: APIXABAN 2.5 MG TABLET PO SCH (09:00)
== END 2023-03-24 20:56 | disposition home or self-care (01) | DRG 871 ==
LOC: EDH 11:51 → OBSVTOIN 19:41 → EDHIP 19:41 → 3CH 03-22 00:40
PROVIDERS: ADMIT Internal Medicine Critical Care Medicine; ATTEND Internal Medicine Critical Care Medicine
DX: A41.9 Sepsis, unspecified organism (principal); I21.A1 Myocardial infarction type 2; E87.20 Acidosis, unspecified; I48.20 Chronic atrial fibrillation, unspecified; E87.1 Hypo-osmolality and hyponatremia; I50.40 Unspecified combined systolic (congestive) and diastolic (congestive) heart failure; Z68.1 Body mass index [BMI] 19.9 or less, adult; I11.0 Hypertensive heart disease with heart failure; R65.20 Severe sepsis without septic shock; K52.9 Noninfective gastroenteritis and colitis, unspecified; E83.42 Hypomagnesemia; D50.9 Iron deficiency anemia, unspecified; R73.9 Hyperglycemia, unspecified; E78.00 Pure hypercholesterolemia, unspecified; I25.10 Atherosclerotic heart disease of native coronary artery without angina pectoris; Z96.649 Presence of unspecified artificial hip joint; Z79.01 Long term (current) use of anticoagulants; I25.2 Old myocardial infarction; Z79.899 Other long term (current) drug therapy; Z86.718 Personal history of other venous thrombosis and embolism
CPT/HCPCS: 36415; 70450; 71045; 74176; 76705; 80048; 80053; 80061; 82140; 82550; 82948; 83036; 83605; 83630; 83690; 83735; 83874; 83880; 84100; 84443; 84484; 85025; 85027; 87040; 87046; 87177; 93005; 93306; 93356; G0378; J0360; J1940; J1956; J2543; J3475; J3490

== ENCOUNTER → 2023-03-26 | Outpatient (CLI) | payer OTHER ==
[~2023-03-26] MED LIST changes: +FAMO20TA8 PO; +FLUT16H NASAL; -FURO20TA4 PO; +FURO40SO4 PO; +METR-172 PO; +OMEG-227 PO; +VERA120C2 PO
== END | disposition home or self-care (01) ==
LOC: SHCH 14:57
PROVIDERS: ATTEND Internal Medicine Cardiovascular Disease
DX: G45.1 Carotid artery syndrome (hemispheric) (principal)
CPT/HCPCS: 93880

== ENCOUNTER → 2023-04-18 | Outpatient (CLI) | payer OTHER ==
[~2023-04-18] MED LIST changes: +REGADENOSON 0.4 MG/5 ML PF SYG IVP ONE
== END | disposition home or self-care (01) ==
LOC: SHCH 08:44
PROVIDERS: ATTEND Internal Medicine Cardiovascular Disease
DX: I25.5 Ischemic cardiomyopathy (principal); I49.1 Atrial premature depolarization
CPT/HCPCS: 78452; 96374; 93017; J2785; A9500 ×2

== ENCOUNTER → 2023-06-05 | Outpatient (CLI) | payer OTHER ==
[~2023-06-05] MED LIST changes: +CEPH500B PO; +CLIN-141 PO; +CLINDAMYCIN IVPB 600MG/50ML 50 ML IV ONE; -REGADENOSON 0.4 MG/5 ML PF SYG IVP ONE
== END | disposition home or self-care (01) ==
LOC: RAH 09:23
PROVIDERS: ATTEND Neurological Surgery
DX: M47.26 Other spondylosis with radiculopathy, lumbar region (principal); M48.02 Spinal stenosis, cervical region
CPT/HCPCS: 72141

== ENCOUNTER 2023-06-06 16:40 | Observation (INO) | payer OTHER ==
[~2023-06-06] VITALS: Ht 165.1 cm; Wt 41.3 kg
[~2023-06-06 16:40] MED LIST changes: -CEPH500B PO; -CLIN-141 PO; -CLINDAMYCIN IVPB 600MG/50ML 50 ML IV ONE
[2023-06-06 18:38] LABS: BASOPHILS # (AUTO) 0.07 K/uL (0.00-0.20); BASOPHILS % (AUTO) 0.6 % (0.0-5.0); EOSINOPHILS # (AUTO) 0.16 K/uL (0.00-0.70); EOSINOPHILS % (AUTO) 1.4 % (0.0-8.0); HEMATOCRIT 30.8 % (36-48); IMMATURE GRANULOCYTE ABSOLUTE 0.03 K/uL (0-1); LYMPHOCYTES # (AUTO) 1.4 K/uL (1.0-4.8); MEAN CORPUSCULAR HEMOGLOBIN 31.6 pg (27.0-33.0); MEAN CORPUSCULAR HGB CONC 33.4 g/dL (32.0-36.0); MEAN CORPUSCULAR VOLUME 94.5 fL (79-99); MONOCYTES # (AUTO) 0.8 K/uL (0.1-1.0); MONOCYTES % (AUTO) 6.7 % (3.0-13.0); PLATELET COUNT (AUTO) 214 K/uL (130-400); RED BLOOD CELL COUNT(AUTO) 3.26 MIL/uL (4.00-5.50); WHITE BLOOD COUNT (AUTO) 11.4 K/uL (4.8-10.8)
[2023-06-06 19:03] LABS: ALBUMIN 3.4 g/dL (3.5-5.0); BILIRUBIN,TOTAL 0.4 mg/dL (0.2-1.0); TOTAL PROTEIN, SERUM 6.4 g/dL (6.0-8.3)
[2023-06-06 19:08] LABS: POTASSIUM 2.9 mmol/L (3.5-5.1)
[2023-06-06] MEDS ORDERED: KCL 20 MEQ ERTAB PO ONE (19:30)
[2023-06-06] MEDS ORDERED: LACTULOSE 20 GM/30 ML UDCUP PO PRN (21:30)
[2023-06-06] MEDS ORDERED: CEFTRIAXONE 1G VIAL IVPB ONE (21:30)
[2023-06-06] MEDS ORDERED: POTASSIUM CHLORIDE 20MEQ/100ML 100 ML IV PRN (21:30)
[2023-06-06] MEDS ORDERED: HYDROCODONE/ACETAMINOPHEN 5/325 MG TAB PO PRN (21:30)
[2023-06-06] MEDS ORDERED: LABETALOL 20MG SYG IV PRN (21:30)
[2023-06-06] MEDS ORDERED: DOCUSATE SODIUM 100 MG CAP PO PRN (21:30)
[2023-06-06] MEDS ORDERED: MORPHINE 2 MG SYG IVP ONE (21:30)
[2023-06-06] MEDS ORDERED: ALBUTEROL 0.083% 2.5 MG/3 ML INH IH PRN (21:30)
[2023-06-06] MEDS ORDERED: ACETAMINOPHEN 325 MG TAB PO PRN (21:30)
[2023-06-06] MEDS ORDERED: HYDRALAZINE 20MG/ML VIAL IV PRN (21:30)
[2023-06-06] MEDS ORDERED: ACETAMINOPHEN 650 MG SUPPOSITORY RC PRN (21:30)
[2023-06-06] MEDS ORDERED: POTASSIUM CHLORIDE 10% ELIXIR 20 MEQ/15 ML UDCUP PO PRN (21:30)
[2023-06-06] MEDS ORDERED: DEXTROSE 50%-WATER 50 ML DISP.SYRIN IV PRN (21:30)
[2023-06-06] MEDS ORDERED: GLUCAGON 1MG KIT 1 MG ML IM PRN (21:30)
[2023-06-06] MEDS ORDERED: LIDOCAINE HCL 1% 20 ML VIAL ONE (23:27)
[2023-06-06] MEDS: KCL 20 MEQ ERTAB PO PRN (23:36)
[2023-06-07] VITALS (8 sets, daily range): BP systolic 89–134; BP diastolic 38–57; PULSE 62–84; RESP 16–20; O2SAT 97–100
[2023-06-07] MEDS ORDERED: MAGNESIUM 2GM PREMIX 50ML 50 ML IV PRN
[2023-06-07] MEDS: KCL 20 MEQ ERTAB PO PRN ×2 (01:10→02:04)
[2023-06-07] MEDS: CLINDAMYCIN IVPB 600MG/50ML 50 ML IV SCH ×4 (01:58→22:47)
[2023-06-07] MEDS: CEFTRIAXONE 2GM VIAL IVPB SCH (09:22)
[2023-06-07 09:44] LABS: CHOLESTEROL 117 mg/dL (<200); HDL CHOLESTEROL 63 mg/dL (35-85); LDL DIRECT 40 mg/dL (0-99); TRIGLYCERIDES 61 mg/dL (30-200)
[2023-06-07] MEDS ORDERED: KCL 20 MEQ ERTAB PO ONE (11:30)
[2023-06-07] MEDS ORDERED: 0.9% NACL 500ML IV.SOLN 500 ML IV SCH (12:00)
[2023-06-08 00:25] VITALS: BP 91/32; PULSE 67; RESP 18
[2023-06-08 04:00] VITALS: BP 103/43; PULSE 62; RESP 18
[2023-06-08 05:55] LABS: BASOPHILS # (AUTO) 0.07 K/uL (0.00-0.20); BASOPHILS % (AUTO) 0.8 % (0.0-5.0); EOSINOPHILS # (AUTO) 0.06 K/uL (0.00-0.70); EOSINOPHILS % (AUTO) 0.7 % (0.0-8.0); HEMATOCRIT 24.8 % (36-48); IMMATURE GRANULOCYTE ABSOLUTE 0.04 K/uL (0-1); LYMPHOCYTES # (AUTO) 1.3 K/uL (1.0-4.8); LYMPHOCYTES % (AUTO) 15.3 % (21.0-51.0); MEAN CORPUSCULAR HEMOGLOBIN 31.8 pg (27.0-33.0); MEAN CORPUSCULAR HGB CONC 33.1 g/dL (32.0-36.0); MEAN CORPUSCULAR VOLUME 96.1 fL (79-99); MONOCYTES # (AUTO) 0.8 K/uL (0.1-1.0); NEUTROPHILS # (AUTO) 6.4 K/uL (1.8-7.7); NEUTROPHILS % (AUTO) 73.7 % (40.0-77.0); PLATELET COUNT (AUTO) 139 K/uL (130-400); RED BLOOD CELL COUNT(AUTO) 2.58 MIL/uL (4.00-5.50); WHITE BLOOD COUNT (AUTO) 8.7 K/uL (4.8-10.8)
[2023-06-08 06:16] LABS: ALBUMIN 2.2 g/dL (3.5-5.0); BILIRUBIN,TOTAL 0.4 mg/dL (0.2-1.0); CREATININE 0.7 mg/dL (0.5-1.5); MAGNESIUM 1.8 mg/dL (1.80-2.40); POTASSIUM 4.2 mmol/L (3.5-5.1); TOTAL PROTEIN, SERUM 4.7 g/dL (6.0-8.3)
[2023-06-08] MEDS: CLINDAMYCIN IVPB 600MG/50ML 50 ML IV SCH (06:47)
[2023-06-08 07:05] VITALS: PULSE 56; RESP 18; O2SAT 97
[2023-06-08 08:00] VITALS: BP 93/38; PULSE 64; RESP 17; O2SAT 97
[2023-06-08] MEDS: CEFTRIAXONE 2GM VIAL IVPB SCH (09:15)
[2023-06-08 11:00] VITALS: BP 104/43; PULSE 68; RESP 17
[2023-06-08] MEDS ORDERED: CLIN-141 PO (11:12)
[2023-06-08] MEDS ORDERED: CEPH500B PO (11:12)
== END 2023-06-08 12:05 | disposition home or self-care (01) ==
LOC: EDH 16:40 → EDHIP 21:21 → 3BH 06-07 00:51
PROVIDERS: ADMIT Internal Medicine; ATTEND Internal Medicine
DX: A41.9 Sepsis, unspecified organism (principal); R65.20 Severe sepsis without septic shock; E87.6 Hypokalemia; S81.811A Laceration without foreign body, right lower leg, initial encounter; L03.115 Cellulitis of right lower limb; L03.116 Cellulitis of left lower limb; E78.5 Hyperlipidemia, unspecified; K21.9 Gastro-esophageal reflux disease without esophagitis; D64.9 Anemia, unspecified; D72.829 Elevated white blood cell count, unspecified; R42 Dizziness and giddiness; E78.00 Pure hypercholesterolemia, unspecified; I48.91 Unspecified atrial fibrillation; I10 Essential (primary) hypertension; I96 Gangrene, not elsewhere classified; M47.812 Spondylosis without myelopathy or radiculopathy, cervical region; W54.8XXA Other contact with dog, initial encounter; Y93.89 Activity, other specified; Y92.89 Other specified places as the place of occurrence of the external cause; Y99.8 Other external cause status; Z96.649 Presence of unspecified artificial hip joint; Z79.899 Other long term (current) drug therapy
CPT/HCPCS: 96365; 96366 ×5; 96375 ×2; 96368; 99285; 83735 ×3; 84484; 80053 ×2; 83880; 85025 ×2; 87040 ×2; 83605; 36415 ×3; 71045; 93971; 93005; 96376; 96361; 96367; 80061; 82948 ×6; 82306; G0378 ×38; J2270; J0696 ×3; J3480; J3490 ×4; J3475